=== PATIENT | male | born 1950 | race American Indian/Alaskan Native ===

== ENCOUNTER 2016-08-08 10:18 | Outpatient (CLI) | payer MEDICARE ==
--- NOTE | 2016-08-09 11:19 | XRay Report ---
LUMBOSACRAL SPINE, FIVE VIEWS: HISTORY: Back pain with radiculopathy to the left side. Borderline osteopenia. Moderate to severe multilevel disc space narrowing and facet arthropathy is identified. All levels are affected except for L1-2. There is no evidence for compression deformity, subluxation or bone lesion. The oblique images suggest moderate neural foraminal narrowing bilaterally at the lowest 3 levels. 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 Sclerosis of the left femoral head without flattening likely represents left femoral head osteonecrosis. Radiotherapy beads are identified within the prostate bed. No obvious blastic bony lesion. IMPRESSION: Advanced lumbar spondylosis. No acute process.
== END 2016-08-08 10:19 | disposition home or self-care (01) ==
LOC: XRAY 10:18
PROVIDERS: ATTEND Internal Medicine
DX: M47.896 Other spondylosis, lumbar region (principal); M54.17 Radiculopathy, lumbosacral region; M87.851 Other osteonecrosis, right femur; M12.88 Other specific arthropathies, not elsewhere classified, other specified site
CPT/HCPCS: 72110

== ENCOUNTER 2020-03-09 10:29 | Outpatient (CLI) | payer MEDICARE | END 2020-03-09 10:30 | disposition home or self-care (01) | LOC: CARD 10:29 | PROVIDERS: ATTEND Internal Medicine | DX: Z01.818 Encounter for other preprocedural examination (principal); R94.31 Abnormal electrocardiogram [ECG] [EKG] | CPT/HCPCS: 93005 ==